=== PATIENT | female | born 1980 | race African-American/Black ===

== ENCOUNTER 2020-06-30 16:20 | Emergency (ER) | payer OTHER ==
[~2020-06-30] VITALS: Ht 167.6 cm; Wt 86.2 kg
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
[~2020-06-30 16:20] MED LIST: NOHOMEMEDICATIONS
[2020-06-30 17:46] VITALS: BP 148/85
[2020-06-30] MEDS ORDERED: FLEXERIL PO (17:46)
== END 2020-06-30 17:46 | disposition home or self-care (01) ==
LOC: ER 16:20
DX: S09.90XA Unspecified injury of head, initial encounter (principal); R51.9 Headache, unspecified; M25.561 Pain in right knee; V49.9XXA Car occupant (driver) (passenger) injured in unspecified traffic accident, initial encounter; Y93.89 Activity, other specified; Y92.89 Other specified places as the place of occurrence of the external cause; Y99.8 Other external cause status